=== PATIENT | female | born 1965 | race Caucasian/White ===

== ENCOUNTER → 2016-08-26 | Day surgery (SDC) | payer OTHER ==
[~2016-08-26] MED LIST: ACETAMINOPHEN 1000 MG/100 ML VIAL IV ONE; BACITRACIN IM FOR SOLN 50,000 UNIT VIAL ONE; BUPIVACAINE/EPINEPHRINE 0.25% PF 10 ML VIAL ONE; EPINEPHrine HCL (1:1000) 1 MG/ML VIAL ONE; GENTAMICIN SULFATE 80 MG/2 ML VIAL ONE; KETOROLAC TROMETHAMINE 30 MG/ML (IVP) VIAL IV PUSH ONE; LACTATED RINGER'S 1000 ML INJ 1,000 ML ONE; LIDOCAINE 1%/EPINEPHrine 1:100,000 SOLN 20 ML VIAL ONE; LIDOCAINE HCL 1% PF 30 ML VIAL ONE; MEPERIDINE HCL 50 MG/ML VIAL ONE; MIDAZOLAM HCL 2 MG/2 ML VIAL ONE; NEOMYCIN/POLYMYXIN/BACITRACIN OINT 15 GM TUBE ONE; ONDANSETRON HCL 4 MG/2 ML VIAL IV PUSH ONE; PAXI20TA26 PO; PROPOFOL 200 MG/20 ML AMP IV ONE; SODIUM CHLORIDE 0.9% 20 ML VIAL ONE; ceFAZolin INJ 1,000 MG VIAL ONE
--- NOTE | 2016-08-26 15:15 | TN ---
cc: MILIND PEREA M.D. DATE OF SURGERY: 08/26/2016 PREOPERATIVE DIAGNOSIS Status post bilateral mastectomy with further resultant deformity, asymmetry and discomfort. PROCEDURE Bilateral removal, replacement of implants with a Delores Inspira SCX 580 ccs, serial number of the right breast implant [id number] and to the left [id number], also 580 ccs. Micro fat injections bilateral breast for a grand total of 120 on the left breast, 150 on the right breast. Total liposuction 800 ccs. Also, I did removal of revision of scar located on the previous Port-A-Cath placement that developed hypertrophic scar and tenderness, for a complex repair of approximately 3-1/2 cm. SURGEON Milind Perea MD ANESTHESIA LMA general. ESTIMATED BLOOD LOSS Minimal. COMPLICATIONS None. PROCEDURE She was properly consented, marked, anesthetized. The skin was sterilized with Betadine solution utilizing a tulip draping system. Sterile draping was applied. Tumescent fluid was done of total of 1000 ccs and a combination of saline in 1000 ccs was mixed with 30 ccs of 1% lidocaine plain with 1 cc epinephrine 1:1000. Those were properly tumesced to inner thighs, the inner knees, the anterior thighs and the lower abdomen. Out of those about 800 ccs of fat was removed, decanted, suitable for injections approximately 350. With this I proceeded and through the inframammary incision, previous mastectomy at the inframammary incision level, the capsule was encountered, the implant was removed. Irrigation was carried out utilizing copious antibiotic solution. Capsulotomies were done in order to accommodate the new implant, mostly superiorly. Capsulorrhaphy was done on the left lower breast at the base utilizing 0-Ethibond suture along with a capsulotomy. Isolation of the NAC was done at the beginning and the skin as well. The new implant was introduced. Before introducing the implant, a first round of fat injections were carried out utilizing blunt needles. The implant was introduced. The second round of fat injection was carried out as the patient was sat up. That included the upper medial and lower poles throughout. Again 120 was on the left breast, 150 on the right breast. Finally a 3-1/2 cm scar revision was carried out of this hypertrophic scar on the left upper infraclavicular area where the Port-A-Cath was removed. I revised this and did a complex repair including the fascia of the pectoris major muscle, Rafael's fascia, dermis and subcu. The puncture wounds that were utilized, where we liposuctioned were closed utilizing 4-0 Chromic suture and Steri-Strips. The wound on the lower inframammary incision was closed in three layers of 2-0 Monocryl suture on the capsule, dermis and subcu. Mastisol and Steri-Strips were applied and a compression dressing was applied as a bra from the chest as well as a compression garment below the knee for the thighs and knee area. Good viability of all the tissue was noted at the end of the case. The patient was awakened, extubated in the operating room, transferred back to the postanesthesia care unit in stable condition. No complications were appreciated and the patient tolerated the procedure fairly well. MD JOSE F Nevarez/JENNIFER /2:30 PM /2:59 PM [email or web address]
--- NOTE | 2016-09-11 17:44 | TH ---
cc: NEHEMIAH WHITTEN DATE 08/26/16 DATE OF 1965 PREOPERATIVE DIAGNOSIS Bilateral mastectomy with further asymmetry status post bilateral breast reconstruction with further deformity. HISTORY OF PRESENT ILLNESS Mrs. Pham is a pleasant 51-year-old female who back on 12/26/2014 underwent a bilateral placement of tissue expanders which back in February were removed and placed the permanent implants. She did have some significant deformity that lead into the current situation, that is creating deformity, asymmetry and discomfort. PAST MEDICAL HISTORY Her past medical history is otherwise significant for mitral valve prolapse. She did have a cosmetic liposuction in the past, hysterectomy, breast augmentation, ___ appendectomy and . MEDICATIONS Melatonin. SOCIAL HISTORY Unremarkable. ALLERGIES None. PHYSICAL EXAMINATION CONSTITUTIONAL: General appearance. The patient is a well-developed female in no acute distress. Body habitus is within normal limits. There appear to be no deformities. Appears to have attention to grooming. HEENT: Eyes Conjunctivae and lids are within normal anatomical limits. The pupils are reactive to light and accommodation, size, and symmetry. There is no evidence of exudate, hemorrhage, or vessel change. Ears, mouth, nose, and throat The external inspection of the ears and nose fails to demonstrate any pathology, scars, lesions, or masses. Nasal mucosa, septum, and turbinates appear to be well hydrated as well as the lips and gums. No evidence of masses in the hypopharynx or submental area. RESPIRATORY: The patient shows no evidence of intercostal refractions. Otherwise, lungs are clear to auscultation without any abnormal sounds or rubs. CARDIOVASCULAR: The patient has a normal heart rate and rhythm. There is no evidence of noticed carotid bruits. Femoral pulses and pedal pulses in extremities are also within normal limits. GASTROINTESTINAL/ABDOMEN: Soft with no evidence of masses or tenderness. Unable to palpate the liver or spleen. No evidence of hernia. MUSCULOSKELETAL: Appears to be reasonable range of motion on the head, neck, spine, ribs, pelvis, right upper extremity, left upper extremity, right lower extremity, and left lower extremity. The muscle strength and tone appears to be equal and within accepted limits. SKIN: There is no rashes, lesions, or ulcers on the trunk, back, and extremities. NEUROLOGICAL: Examination is grossly normal. PSYCHIATRIC: The patient appears to have good orientation of time, place, and person. Does not appear to have any mood effects of depression, anxiety, or agitation. BREASTS: Areas of significant deformity noted on both breasts that created significant asymmetry and again a deformity. RECOMMENDATIONS Bilateral revision, reconstruction including removing the implant, replace it with a SCX 580 with fat injections. The risks and possible complications have been discussed with the patient. MD JOSE F Nevarez/JOSSIE /4:51 PM /5:33 PM
== END | disposition home or self-care (01) ==
LOC: ESDC 09:58
PROVIDERS: ATTEND Plastic Surgery
DX: Z85.3 Personal history of malignant neoplasm of breast (principal); Z90.13 Acquired absence of bilateral breasts and nipples
CPT/HCPCS: 00402; 19380; C1789; J0131; J0171; J0690; J1580; J1885; J2175; J2250; J2405; J3010; J7120